=== PATIENT | male | born 2005 | race Caucasian/White ===

== ENCOUNTER → 2024-09-02 | Outpatient (CLI) | payer SELFPAY | END | disposition home or self-care (01) | LOC: PSN 08:01 | PROVIDERS: PCP Physician Assistant | DX: G40.909 Epilepsy, unspecified, not intractable, without status epilepticus (principal) | CPT/HCPCS: 95819 ==

== ENCOUNTER → 2024-09-17 | Outpatient (CLI) | payer SELFPAY ==
--- NOTE | 2024-09-17 16:33 | MRI_ITS ---
PROCEDURE: BRAIN W/WO CONTRAST 09/17/2024 REASON FOR EXAM: EPILEPSY TECHNIQUE: Routine brain MRI without and with intravenous contrast. CONTRAST: Clariscan VOLUME: 15 mL Gauge IV COMPARISON: None FINDINGS: Brain: Alarcon-white matter differentiation is within normal limits. No suspicious intracranial mass no abnormal signal intensity. No abnormal parenchymal or leptomeningeal enhancement. There is suggestion of mild right hippocampal volume loss (series 9 images 9-13). However, no increased abnormal T2 signal intensity within this region. No evidence of focal cortical dysplasia or alarcon matter heterotopia. Diffusion: No restricted diffusion, to suggest an acute infarct. Ventricles: Ventricles are within normal limits. Major Intracranial Vessels: Normal flow voids of major intracranial vasculature. Sinuses: Clear. Mastoids: Clear. MRI/Brain W/WO Contrast IMPRESSION: 1. No acute intracranial abnormality; no acute infarct, intracranial hemorrhage or extra-axial collection. 2. No suspicious intracranial mass, abnormal parenchymal or leptomeningeal enha ncement. 3. Mild right hippocampal volume loss without abnormal T2 signal intensity. 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
--- NOTE | 2024-09-17 16:54 | RAD_ITS ---
PROCEDURE: ORBITS FOR FOREIGN BODY 09/17/2024 REASON FOR EXAM: MRI FOREIGN BODY CLEARANCE TECHNIQUE: 2 view(s) of the facial bones COMPARISON: None FINDINGS: Bones: No acute osseous abnormality. Orbits are within normal limits. Sinuses: Imaged paranasal sinuses are clear. Additional findings: No radiopaque foreign body. RAD/Orbits for Foreign Body IMPRESSION: No radiopaque foreign body. Reading Location: [facility]
== END | disposition home or self-care (01) ==
PROVIDERS: PCP Physician Assistant
DX: G40.909 Epilepsy, unspecified, not intractable, without status epilepticus (principal)
CPT/HCPCS: 70030; 70553; A9575